=== PATIENT | female | born 1950 | race Caucasian/White ===

== ENCOUNTER → 2022-05-09 07:14 | Outpatient (CLI) | payer MEDICARE, SELFPAY ==
--- NOTE | ~2022-05-09 | MR_ITS ---
EXAMINATION: MR hip RT wo con DATE: 05/09/2022 11:23 INDICATION: Right-sided ischial bursitis TECHNIQUE: Magnetic resonance imaging (MRI) of the right hip was performed without intravenous contr ast. Sequences included full-field axial PD-weighted FS FSE and T1-weighted FSE, coronal of the pelvi s with PD-weighted FS FSE, T2-weighted FSE and T1-weighted FSE, small field of view of the right hip with axial PD-weighted FS FSE, sagittal PD-weighted FS FSE, coronal PD-weighted FS FSE and coronal T2 weighted FSE. Additional radial T1-weighted FGR oriented orthogonal to the acetabular rim were obt ained for evaluation of the labrum. COMPARISON: None FINDINGS: Bones/labrum/cartilage: 5 mm right lateral listhesis L4 on L5 with severe associated disc height loss with left-sided fibrova scular degenerative endplate changes. Bone alignment is otherwise normal. Otherwise normal marrow sig nal with no fracture, avascular necrosis or pathologic marrow replacing process. There is a labral te ar beginning anteriorly at the 12:30 position and extending posteriorly to the 10:30 position. Mild r ight hip osteoarthritis with mild nonuniform partial-thickness cartilage loss most prominent at the p osterior aspect of the joint space. Additional mild osteoarthritis at the left hip and bilateral sacr oiliac joints. Fluid/soft tissues: Symmetric physiologic amount of fluid within both hip joints. There is an additional small fluid diana ection at the site of a partial avulsion of the right ischial tuberosity origin of the right semimemb ranosus, semitendinosus and biceps femoris tendons. The fluid covered tear defect measures 2.2 cm craft artist niocaudally and 1.6 cm anteroposteriorly. The more superficial/lateral side of the tendons remain int act preventing distal retraction. There is moderate tendinopathy without tear at the right proximal a bductor millicent tendon. Mild tendinopathy without discrete tear at the left ischial tuberosity origin of the proximal left hamstring tendons. Mild tendinopathy without tears at the greater trochanteric i nsertions of the left gluteus minimus and bilateral gluteus medius tendons. Bilateral iliopsoas tendo ns are normal. Normal and symmetric muscle bulk and signal in the pelvis and visualized proximal thig hs. The iliopsoas, gluteal and proximal hamstring tendons are normal. Mild sigmoid diverticulosis wit hout adjacent inflammatory stranding to suggest diverticulitis. Limited evaluation of visceral organs of the pelvis is otherwise unremarkable. No pathologically enlarged pelvic/inguinal lymphadenopathy . IMPRESSION: 1. Moderate severity partial thickness tear involving a 2.2 x 1.6 cm region of the right ischial tube rosity footplate of the right semimembranosus, semitendinosus and biceps femoris tendons. 2. Additional tendinopathy without tears, moderate severity at the right ischial tuberosity origin of the right abductor millicent tendon and mild at the left ischial tuberosity origin of the proximal left hamstring tendons and at the greater trochanteric insertion of the bilateral gluteus medius and left gluteus minimus tendons. 3. Mild bilateral hip and sacroiliac osteoarthritis with tear at the base of the superior to posterio r superior right acetabular labrum. 4. Severe disc height loss at L4-L5 with 5 mm right lateral listhesis L4 on L5. Reviewed, dictated and finalized at location B. [facility] [employer] IMPRESSION: 1. Moderate severity partial thickness tear involving a 2.2 x 1.6 cm region of the right ischial tuberosity footplate of the right semimembranosus, semitendin osus and biceps femoris tendons. 2. Additional tendinopathy without tears, moderate severity at the right ischia l tuberosity origin of the right abductor millicent tendon and mild at the left is chial tuberosity orig
== END ==
PROVIDERS: PCP Family Medicine; Visit Provider Family Medicine
DX: M70.71 Other bursitis of hip, right hip (principal); M16.0 Bilateral primary osteoarthritis of hip; M53.3 Sacrococcygeal disorders, not elsewhere classified
CPT/HCPCS: 73721

== ENCOUNTER 2023-07-18 16:38 | Outpatient (CLI) | payer MEDICARE, SELFPAY ==
--- NOTE | ~2023-07-18 | MR_ITS ---
MRI of the right knee Clinical history: Pain Technique: Coronal proton density and proton density-weighted images, sagittal proton-density and T2 fat-sat images, and axial proton-density fat-saturated images were acquired. Following intravenous a dministration of 13 cc MultiHance gadolinium, T1-weighted fat-sat imaging was performed in the axial, coronal, and sagittal planes. Findings: There is complete rupture of the proximal anterior cruciate ligament. Posterior cruciate li gament is intact. There is mild thickening and increased signal at the proximal MCL, compatible with grade 1 to very mild grade 2 sprain. Lateral collateral ligament complex is intact. Popliteus tendon is intact. There is complex tear of the posterior horn of the medial meniscus, with probable vertical flap tear solid peripherally. No lateral meniscal tear identified. There are bone contusions of the lateral femoral condyle, and more extensive at the posterolateral ti bial plateau, compatible with recent pivot shift injury. There is additional bone contusion at the po sterior medial tibial plateau and anteromedial tibial plateau. There is extensive grade IV chondromal acia of the patella. There is mild chondral thinning of the femoral trochlea and in the medial latera l compartments. Extensor mechanism is intact. Small to moderate joint effusion present. Small Broussard cyst present. The re is extensive subcutaneous soft tissue edema about the knee. No suspicious postcontrast enhancement identified. Impression: Acute, complete rupture of the proximal ACL. Probable grade 1 to mild grade 2 sprain of the proximal MCL. Complex flap tear of the posterior horn of the medial meniscus. Bone contusions involving the lateral femoral condyle, and extensively involving the tibial plateau r egion, as detailed above. Extensive grade IV chondromalacia patella. Small to moderate joint effusion with small Broussard's cyst. Reviewed, dictated and finalized at [facility]. [employer] Impression: Acute, complete rupture of the proximal ACL. Probable grade 1 to mild grade 2 sprain of the proximal MCL. Complex flap tear of the posterior horn of the medial meniscus. Bone contusions involving the lateral femoral condyle, and extensively involvin g the tibial plateau region, as detailed above. Extensive grade IV chondromalacia patella. Small to moderate joint effusion with small Broussard's cyst.
== END 2023-07-18 16:39 | disposition home or self-care (01) ==
DX: S83.511A Sprain of anterior cruciate ligament of right knee, initial encounter (principal); X58.XXXA Exposure to other specified factors, initial encounter; S83.231A Complex tear of medial meniscus, current injury, right knee, initial encounter; M25.461 Effusion, right knee; M71.21 Synovial cyst of popliteal space [Baker], right knee
CPT/HCPCS: 73723; A9577

== ENCOUNTER 2023-09-12 02:55 | Day surgery (SDC) | payer MEDICARE, SELFPAY ==
[2023-09-05 10:20] VITALS: BMI 24.2
--- NOTE | 2023-09-05 10:27 | PC.NURSE ---
Report to the Outpatient Waiting Room, entrance under the green pavilion located off [facility], at time 1130 on date 09/12/23. Planned Procedure Time: 1330. Time changes happen often and if your time is changed the preop area will call you the afternoon before. - You and your visitor will be asked to self-screen and do not enter if you have any COVID symptoms. - A mask is optional within the hospital at this time. Patients may have clear liquids (water, carbonated beverages, clear teas, apple juice) until 3 hours prior to surgery with a maximum of 20 ounces. - No food from midnight until time of surgery Take the following medications with a SIP of water the morning of surgery: NONE DO NOT STOP ANY OF YOUR OTHER PRESCRIPTION MEDICATIONS PRIOR TO SURGERY ?EXCEPT THE FOLLOWING Medications to discontinue per physician: VITAMINS Date to take last dose: 09/08/23 Please no make-up, nail jamaican, hairspray, perfume, deodorant, or body powder the day of surgery. No jewelry (including any body piercings) or valuables the day of surgery, leave them at home. Please take a shower or bath the night before, or the morning of, surgery with an antibacterial soap. Wear comfortable, loose fitting clothing. - Jewelry must be removed prior to entering the operating room. Rings and piercings that are not removed may be cut off. - The hospital will not accept responsibility for valuables. - Please leave all valuables, including medications, at home the day of surgery. If you are going home after surgery, a licensed jukebox route driver must drive you home. - NO public transportation without another adult if you receive anesthesia. - We recommend that an adult stay with you for 24 hours following discharge. - We also recommend that you do not drive, make important decision, drink alcoholic beverages, or take any drugs that were not prescribed by your health care provider for at least 24 hours after your discharge time. Follow any additional instructions given to you from your surgeon. If you or anyone in your household have experienced Covid symptoms in the past week, please notify your surgeon or the nurse liaison at the phone number below for possible testing. Telephone instructions given to PT - ALVARADO ALLISON and asked if any additional questions and then verbalized understanding. Patient advised to call surgeon office or pre surgery nurse liaison [phone] if any additional questions.
[2023-09-12] VITALS (8 sets, daily range): BP systolic 119–140; BP diastolic 44–68; PULSE 63–98; RESP 14–20; TEMP 36–36.6; O2SAT 96–100
--- NOTE | 2023-09-12 07:43 | WPDHPUPDATE1 ---
History and Physical Update Update Date/Time: 09/12/23 07:43 History and Physical has been reviewed, including an updated exam of the patient. There are NO changes in the patient's condition. Risks, benefits, and alternatives have been discussed and questions answered. Patient agrees to proceed with procedure.
[2023-09-12] MEDS: KETOROLAC 15 MG/ML VIAL (*BKC) IV PUSH (08:30)
[2023-09-12] MEDS: LACTATED RINGERS 1,000 ML 30 ML IV CONT ×2 (08:30→10:47)
[2023-09-12] MEDS: ACETAMINOPHEN 500 MG TABLET 1000 MG PO (08:30)
--- NOTE | 2023-09-12 08:55 | WPDANESEPPF ---
Anes - Initial Pre Proc Eval Procedure: Operation Date: 09/12/23 09:30 Proposed Procedures p Right Knee Arthroscopic Partial Medial Meniscectomy - Romeo Monreal MD Date/Time: 09/12/23 08:55 Surgeon: Romeo Monreal MD Pre Op Diagnosis: Rt Knee Medial Meniscus Tear Patient Data Age: 72 Gender: F Height: 1.68 m Weight: 68.05 kg Allergies Allergy/AdvReac Type Severity Reaction Status Date / Time bee venom protein (honey bee) Allergy Severe Anaphylaxis Verified 09/12/23 08:13 hydrocodone [From [place]] Allergy Mild Vomiting Verified 09/05/23 10:19 Home Medications Medication Instructions Recorded Confirmed Type vitamin B complex 1 tablet PO QMWF 09/05/23 09/05/23 History aspirin 81 mg tablet,delayed 81 mg PO BID 14 days #28 tabs 09/12/23 Rx release tramadol 50 mg tablet 50 mg PO Q4-6H PRN pain #30 tabs 09/12/23 Rx Patient hx anesthesia problems: none Family hx anesthesia problems: none Results Review: All pre-operative results and documents have been reviewed as part of the pre-operative evaluation. [facility] Past Medical History Medical History Anaphylaxis Female stress incontinence History of postoperative nausea and vomiting Hyperlipidemia Ischial bursitis Osteopenia Sensitivity to medication Narcotics Family History Family History Sibling Family history of type 2 diabetes mellitus Coronary arteriosclerosis Other Family history of cardiovascular disease Social History Social History Smoking status: Never smoker Alcohol intake: current Drinks per week: 4 Alcohol use details: WINE Substance use: never Substance use type: does not use Do You Feel Safe in your Home?: Yes Lack of Transportation: No Lack of Food: Never True Current Housing: I Have Housing Concerned About Future Housing: No Difficulty Paying Gas/Electric Bills: No Difficulty Paying for Meds: No Currently Unemployed: No Education: Associate Degree Difficulty w/ Childcare or Family Care: No Living arrangements: with family Spiritual care concerns: No Anes - Eval Final PreProcedure Day of Procedure 09/12/23 08:55 Patient weight: normal Heart: regular rate and rhythm Lungs: clear to auscultation Airway: Mallampati scale class II Neurological: alert and oriented Last oral intake: >/= 8 hours ASA classification: II Emergent: no Anesthetic plan: proceed Anesthesia type and monitoring: general LMA and standard monitoring Results Review: All pre-operative results and documents have been reviewed as part of the pre-operative evaluation. Informed Consent: The patient's anesthetic plan and its attendant risks and benefits were discussed with the patient/family/POA. Questions were solicited and answers provided to the satisfaction of the patient/family/POA.
[2023-09-12] MEDS: ceFAZolin 2 GM/D5W 50 ML 2 GM/50 ML BAG IVPB (09:48)
[2023-09-12] MEDS: BUPIVACAINE/EPINEPHRINE 0.5% 30 ML VIAL 10 ML INFILTRATE (10:14)
--- NOTE | 2023-09-12 13:14 | W.PM.PROC2 ---
Procedure Note - Detailed Date of Procedure 09/12/23 Pre-op Diagnosis 1. Rt Knee Medial Meniscus Tear 2. ACL tear Post-op Diagnosis Other (Right knee medial and lateral meniscus tears. ACL tear) Procedure Performed Arthroscopic partial medial and lateral meniscectomies, right knee. Surgeon Romeo Monreal MD Anesthesia General Findings Moderate complex and horizontal cleavage tearing of the posterior medial meniscus. This was debrided to a stable rim and as much tissue was preserved as possible. Cartilage in the medial and lateral compartments were very healthy except for some fissuring on the lateral weight-bearing tibia. Patella however had nearly complete loss of cartilage with exposed bone. Trochlea however had mild chondromalacia grade 1/2. The lateral meniscus did have extensive inner margin tearing. The ACL appeared to be healing onto the PCL. There was an empty notch sign. Loose strands of scar tissue and ACL fibers were gently debrided or treated with the radiofrequency probe. Description of Procedure The patient was identified and the surgical site confirmed and signed in the preoperative holding area. Antibiotics were started per protocol, and the patient was brought to the operative room and transferred to the OR table. A general anesthetic was administered. Supine position with the operative lower extremity position in the leg cabrales after placement of a well padded tourniquet. The leg support was lowered and the contralateral limb was supported with a soft bolster. The knee was prepped and draped in the usual sterile fashion. A time-out was performed. The portal sites were marked and infiltrated with 0.5% Marcaine 20 mL. The limb was exsanguinated and the tourniquet inflated to 300 mL Hg. Standard inferolateral and inferomedial portals were established. Inflow was obtained with the saline pump. The camera was introduced. Diagnostic inspection of the joint was accomplished. The menisci were debrided with the arthroscopic shaver and punches until stable. The radiofrequency probe was also used for further d?bridement. Loose fibers of the ACL were debrided and treated with the radiofrequency probe where they could be shrunk slightly. AP translation was increased but did seem to have some stability from the residual ACL fibers. The arthroscopic instruments were removed. The tourniquet released and wounds closed with subcutaneous 4-0 Monocryl absorbable suture. Steri strips and a sterile dressing were applied. A light elastic wrap was placed. The patient was extubated and brought to the recovery room in stable condition. Estimated Blood Loss 5 Drains No Complications No immediate complications Condition Stable Disposition PACU [facility] Billing Surgery - Charge Forward: Surgery Billing
== END 2023-09-12 12:20 | disposition home or self-care (01) ==
PROVIDERS: Visit Provider Orthopaedic Surgery
PROC: (CPT 29870; principal; 2023-09-12 09:30)
DX: S83.231A Complex tear of medial meniscus, current injury, right knee, initial encounter (principal); W01.0XXA Fall on same level from slipping, tripping and stumbling without subsequent striking against object, initial encounter; M94.261 Chondromalacia, right knee; S83.281A Other tear of lateral meniscus, current injury, right knee, initial encounter; Z79.82 Long term (current) use of aspirin
CPT/HCPCS: 29880; A9270; J0690; J1100; J1170; J1596; J1885; J2371; J2405; J2704; J3010; J7120

== ENCOUNTER 2024-01-03 13:59 | Outpatient (CLI) | payer MEDICARE, SELFPAY ==
--- NOTE | ~2024-01-03 | DEXA_ITS ---
Bone Density Report Name: ALVARADO ALLISON Age: 73 Sex: Female Ethnicity: White Date of : 1950 Indication: postmenopausal; screening for osteoporosis; history of glucocorticoids; Referring Provider: SE, LASHON Burnett Study: Bone densitometry was performed. Exam Date: January 03, 2024 Accession number: [id number] Bone Density: Region BMD T-score Z-score Classification AP Spine(L1-L4) 0.852 -1.8 0.4 Osteopenia Femoral Neck (Left) 0.886 0.3 2.2 Normal Total Hip (Left) 0.976 0.3 1.8 Normal Femoral Neck (Right) 0.814 -0.3 1.5 Normal Total Hip (Right) 1.013 0.6 2.2 Normal Total Hip Mean 0.994 0.5 2.0 Normal World Health Organization criteria for BMD impression classify patients as: Normal (T-score at or above -1.0), Osteopenia (T-score between -1.0 and -2.5), or Osteoporosis (T-score at or below -2.5). 10-year Fracture Risk(1): Major Osteoporotic Fracture 13% Hip Fracture 1.1% Reported Risk Factors: [place] (), Neck BMD=0.814, BMI=25.1, glucocorticoids (1) FRAX(R) Version 3.08. Fracture probability calculated for an untreated patient. Fracture probability may be lower if the patient has received treatment. Clinical Information Provided by Patient: Has taken Glucocorticoids Patient maximum height was 66.5 Menopause Age: 53 Drinks caffeinated beverages Onset of menses at age 16 Number of children 3 Impression: The patient has low bone mass, based on the Total Spine T-score. The patient has an estimated ten-year risk of hip fracture of 1.1% and an estimated ten-year risk of major fracture of 13%, based on the WHO FRAX algorithm. The patient has risk factors, including: history of glucocorticoid therapy. Discussion: BONE DENSITY IS LOW AT ONE OR MORE SKELETAL SITES. This patient's lowest T-score is low at one or more skeletal sites. It meets the World Health Organization's (WHO) criteria for ?low bone mass? (T-score between -1.0 and -2.5). The patient's 10-year risk of fracture as calculated by FRAX is less than the threshold where pharmacological therapy is recommended by the National Osteoporosis Foundation (NOF). However, all treatment decisions require clinical judgment and consideration of individual patient factors, including patient preferences, comorbidities, previous drug use, risk factors not captured in the FRAX model (e.g., frailty, falls, vitamin D deficiency, increased bone turnover, interval significant decline in bone density) and possible under or overestimation of fracture risk by FRAX. The patient should follow a healthful lifestyle (good nutrition with adequate calcium and vitamin D, and appropriate weight-bearing exercise). Follow-Up: Consider repeating this study in 2 to 3 years to reassess this patient's status, or sooner if there is some new c
== END 2024-01-03 14:00 | disposition home or self-care (01) ==
PROVIDERS: Visit Provider Family Medicine
DX: Z78.0 Asymptomatic menopausal state (principal); M85.88 Other specified disorders of bone density and structure, other site
CPT/HCPCS: 77080

== ENCOUNTER 2025-03-22 09:29 | Outpatient (RCR) | payer SELFPAY | END 2025-06-20 23:59 | disposition home or self-care (01) | LOC: ANHAUDASC 09:29 | DX: Z46.1 Encounter for fitting and adjustment of hearing aid (principal) | CPT/HCPCS: 92593 ==

== ENCOUNTER 2025-04-07 07:57 | Outpatient (CLI) | payer MEDICARE, SELFPAY ==
--- OUTSIDE RECORDS SUMMARY | 2025-04-07 08:04 | XMS_ITS | Clinical Summary ---
Author Organization [facility] Address [address] [place] [id number] Care Team Providers Care Parimutuel Cashier Name Role Phone Miguel Triana DO Primary Care Provider [phone] Allergies Active Allergy Reactions Criticality Noted Date Comments Bee Venom Anaphylaxis High 11/28/1971 Hydrocodone Nausea and Vomiting 03/17/2024 Medications B Complex Vitamins (B COMPLEX 1 OR) 06/24/2021 Ac tive Calcium Carb-Cholecalcifer ol (CALCIUM 1000 + D OR) 01/23/2024 Active Active Problems No known active problems Resolved Problems Problem Noted Date Diagnosed Date Resolved Date Screening for colon cancer 03/17/2024 0 03/23/2024 Social History Tobacco Use Types Packs/Day Years Used Date Smoking Tobacco: Never Passive Smoke Exposure: Never Smokeless Tobacco: Never Tobacco Cessation:Counseling Given: No Alcohol Use Standard Drinks/Week Comments Not Currently 11.7 (1 standard drink = 0.6 oz pure alcohol) 1 glass with dinner PHQ-2 Answer Date Recorded Patient Health Questionnaire-2 Score 0 03/17/2024 Comments No Sex and Gender Information Value Date Recorded Sex Assigned at Female 07/29/2024 8:14 AM [employer] Legal Sex Female 7:31 PM CDT Gender Identity Not on file Sexual Orientation Not on file Last Filed Vital Signs Vital Sign Reading Time Taken Comments Blood Pressure 139/63 07/30/2024 2:05 PM [employer] Pulse 60 07/30/2024 2:05 PM [employer] Temperature 36.2 C (97.2 F) 07/30/2024 1:36 PM [employer] Respiratory Rate 22 07/30/2024 2:05 PM [employer] Oxygen Saturation 98% 07/30/2024 2:05 PM [employer] Inhaled Oxygen Concentration - - Weight 68 kg (150 lb) 07/16/2024 3:23 PM [employer] Height 167.6 cm (5' 6) 07/16/2024 3:23 PM [employer] Body Mass Index 24.21 07/16/2024 3:23 PM [employer] Plan of Treatment Health Maintenance Due Date Last Done Comments Hepatitis C 1968 Annual Medicare Wellness Visit 2017 DTaP, Tdap and Td Vaccines (2 - Td or Tdap) 07/18/2022 07/18/2012 PHQ-2 (Physician [place]) 06/24/2024 03/17/2024 COVID-19 Vaccine ( season) 2025 03/19/2022, 05/24/2021, 08/26/2020, Additional history exists Influenza Adult (#1) 2025 04/12/2022, 04/26/2021, 04/10/2019, Additional history exists Mammogram Screening 07/29/2026 07/29/2024, 07/18/2023, 05/31/2022, Additional history exists RSV Immunization or 60+ Years (1 - 1-dose 75+ series) 10/23/2027 Colorectal Cancer Screening Colonoscopy (10 Years) 07/30/2034 07/30/2024, 07/30/2024 Zoster Vaccines Completed 03/04/2019, 09/22, 10/08/2018, Additional history exists Dexa Scan (General) Completed 04/04/2020, Pneumococcal Vaccine: 50+ Years Completed 04/24/2022, 08/19/2018, 08/01/2018 Meningococcal B Vaccine Aged Out No l onger eligible based on patient's age to complete this topic Meningococcal Vaccine Aged Out No cody idalia eligible based on patient's age to complete this topic RSV Immunizations Under 20 Months Aged Out No longer eligible based on patient's age to complete this topic Procedures Procedure Name Priority Date/Time Associated Diagnosis Comments COLONOSCOPY Routine 07/30/2024 12:47 PM [employer] MG SCREENING W JUANIS ANILA DIGI Routine 07/29/2024 8:43 AM [employer] Visit for screening mammogram BONE DENSITY/DEXA Routine 04/04/2020 8:5 2 AM CDT Postmenopausal state from Last 3 Months or Most Recently Relevant to Health Maintenance Results * MG SCREENING W JUANIS ANILA DIGI (07/29/2024 8:43 AM [employer]) Anatomical Region Laterality Modality Breast Bilateral Mammography 07/29/2024 12:0 3 PM [employer] Impressions 07/29/2024 12:17 PM [employer] ===== IMPRESSION: ===== 1. Stable mammographic appearance with no new findings to suggest malignancy in either breast. Assessment: ACR BI-RADS 2 - BENIGN FINDING(S) Recommendation: 1:Routine Screening Bilateral Comments: Ordered By: MARY MILLER Interpreted By: Nataliya Jaime, 07/29/2024 12:03 PM Narrative 07/29/2024 12:17 PM [employer] [facility] [address] [place] [address] EXAMINATION: Digital bilateral screening mammogram with 3-D tomosynthesis EXAM DATE/TIME: 07/29/2024 8:24 AM REASON FOR EXAM: visit for screening mammogram COMPARISON: 05/31/2022. 07/18/2023 Technique: Digital screening mammography of both breasts was performed in addition to 3-D Tomosynthesis technique. This study was read with the assistance of a computer-aided detection system. Tissue density: There are scattered areas of fibroglandular density. Findings: There is no new focal asymmetry, dominant mass lesion, area of skin thickening, or cluster of suspicious appearing calcifications in either breast to suggest malignancy. us Mary Miller MD MAMMO Final R esult * BONE DENSITY/DEXA (04/04/2020 8:52 AM CDT) Anatomical Region Laterality Modality Bone Mammography 04/04/2020 9:47 AM CDT Impressions 04/04/2020 9:51 AM CDT Impression: 1. 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 The patient is at increased risk of fracture. 2. Normal bone mineral density of the hips. Narrative 04/04/2020 9:51 AM CDT Date: 04/04/2020. Examination: DEXA Bone densitometry. Comparison: No comparisons.. Clinical history: Osteoporosis screening. Technique: DEXA bone minimal density evaluation was performed in the AP projection over the lumbar spine and over both hips in the AP projection utilizing standard imaging techniques. Assessment: The BMD measured at the AP spine L1-L4 is 0.802 g/cm2 with a T-score of -2.2 and a Z-Score of -0.3. Osteopenia. The BMD measured at the femur total left is 0.954 g/cm2 with a T-score of 0.1 and a Z-Score of 1.5. Normal bone mineral density. The BMD measured at the femur total right is 1.025 g/cm2 with a T-score of 0.7 and aZ-Score of 2.0. Normal bone mineral density. Recommendations: All patients should ensure an adequate intake of dietary calcium and vitamin D. The NOF recommend adults under the age of 50 need 1000 mg of calcium and 400-800 IU of vitamin D daily. Effective therapy for the prevention and treatment of osteoporosis include biphosphonates. Follow-up: People with diagnosed cases of osteoporosis or at high risk for fracture should have regular bone mineral density test. For patients eligible for Medicare, routine testing is allowed once every 2 years. Testing frequency can be increased to one year for patients who have rapidly progressing disease, those who are receiving or discontinuing medical therapy to restore bone mass, or have additional risk factors. Based on these results, a followup exam is recommended in March 2021. Procedure Note Jason Ruano MD - 04/04/2020 Date: 04/04/2020. Examination: DEXA Bone densitometry. Comparison: No comparisons.. Clinical history: Osteoporosis screening. Technique: DEXA bone minimal density evaluation was performed in the AP projection over the lumbar spine and over both hips in the AP projection utilizing standard imaging techniques. Assessment: The BMD measured at the AP spine L1-L4 is 0.802 g/cm2 with a T-score of -2.2 and a Z-Score of -0.3. Osteopenia. The BMD measured at the femur total left is 0.954 g/cm2 with a T-scoreof 0.1 and a Z-Score of 1.5. Normal bone mineral density. The BMD measured at the femur total right is 1.025 g/cm2 with a T-scoreof 0.7 and aZ-Score of 2.0. Normal bone mineral density. Recommendations: All patients should ensure an adequate intake of dietary calcium and vitamin D. The NOF recommend adults under the age of 50 need 1000 mg of calcium and 400-800 IU of vitamin D daily. Effective therapy for the prevention and treatment of osteoporosis include biphosphonates. Follow-up: People with diagnosed cases of osteoporosis or at high risk for fracture should have regular bone mineral density test. For patients eligible for Medicare, routine testing is allowed once every 2 years. Testingfrequency can be increased to one year for patients who have rapidly progressing disease, those who are receiving or discontinuing medical therapy to restore bone mass, or have additional risk factors. Based on these results, a followup exam is recommended in March 2021. Impression: 1. 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 Thepatient is at increased risk of fracture. 2. Normal bone mineral density of the hips. Miguel Triana DO DEXA Final Result from Last 3 Months or Most Recently Relevant to Health Maintenance Insurance [employer] MEDICARE Care Teams Parimutuel Cashier Relationship Specialty Start Date End Date Miguel Triana DO [address] [id number] PCP - General FAMILY PRACTICE 04/11/22
--- OUTSIDE RECORDS SUMMARY | 2025-04-07 08:04 | XMS_ITS | Clinical Summary ---
Author Organization [facility] Care Team Providers Care Heel Former Name Role Phone Miguel Triana DO Primary Care Provider [phone] Allergies Active Allergy Reactions Criticality Noted Date Comments Hydrocodone-Acetaminophen Nausea & Vomiting Low Venom-Honey Bee Anaphylaxis High 11/28/1971 Medications EPINEPHrine 0.3 mg/0.3 mL auto-injection syringe epinephrine 0.3 mg/0.3 mL injection, auto-injector Active multivitamin capsule Take 1 capsule by mouth daily Active ondansetron ODT (ZOFRAN-ODT) 4 mg disintegrating tablet 07/08/19 24 Active Active Problems No known active problems Surgical History Surgery Date Site/Laterality Comments MOHS SURGERY chest Medical History Medical History Date Comments Low bone mass Skin cancer melanoma. 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 Gender Identity Female 09/28/2020 9:56 PM CDT Sexual Orientation Straight 09/28/2020 9: 56 PM CDT Occupation Industry Job Start Date Job End Date [employer] [facility] Not on file Not on file Not on file Obstetrics History Para Term AB IAB SAB Ectopic Multiple Livin g Live Births 3 2 Date Outcome GA Total Labor Labor/2nd/3rd Weight Sex Type Anes PTL Shereen A1 A5 Name Clin Para Para Comments First delivery 25 Menarche 16 Last Filed Vital Signs Vital Sign Reading Time Taken Comments Blood Pressure 124/60 10/05/2020 10:36 AM CDT Pulse - - Temperature - - Respiratory Rate - - Oxygen Saturation - - Inhaled Oxygen Concentration - - Weight 68 kg (150 lb) 10/16/2022 9:05 AM CDT Height 167.6 cm (5' 6) 10/16/2022 9:05 AM CDT Body Mass Index 24.21 10/16/2022 9:05 AM CDT Plan of Treatment Health Maintenance Due Date Last Done Comments Breast Cancer Screening-Mammogram 1950 Colon Cancer Screening-Colonoscopy 1950 Depression Screening 1950 Fall Risk Assessment 1950 Hepatitis C Screening 1950 Hepatitis B Screening 1970 Well Visit 65+ 09/19/2021 09/19/2020 Osteoporosis Screening-Bone Density Scan 04/04/2022 04/04/2020, 03/24/2020 DTaP/Tdap/Td Vaccine (2 - Td or Tdap) 07/18/2022 07/18/2012 Covid-19 Vaccine (4 - 2024-2 6 season) 2025 05/24/2021, 08/26/2020, 07/29/2020 Influenza Vaccine (#1) 2025 , 04/10/2019, 04/10/2019, Additional history exists Zoster Vaccine Completed 03/04/2019, 09/22, 10/08/2018, Additional history exists Pneumococcal vaccine 65+ Completed 04/24/2022, 07/26 Insurance [facility] MEDICARE ADVANTAGE [facility] MEDICARE ADVANTAGE [facility] MEDICARE [facility] MEDICARE Care Teams Heel Former Relationship Specialty Start Date End Date Miguel Triana DO PCP - General Family Medicine 09/19/20
== END 2025-04-07 07:58 | disposition home or self-care (01) ==
LOC: ANHAUDASC 07:58
PROVIDERS: PCP Family Medicine; Visit Provider Family Medicine
DX: H90.3 Sensorineural hearing loss, bilateral (principal)
CPT/HCPCS: 92557; 92567; 99199